=== PATIENT | male | born 1965 | race American Indian/Alaskan Native ===

== ENCOUNTER 2020-09-22 07:36 | Day surgery (SDC) | payer OTHER ==
[~2020-09-22 07:36] MED LIST: SODIUM CHLORIDE 0.9% 1000 ML 1,000 ML IV SCH
--- NOTE | 2020-09-22 09:13 | Anesthesia Consultation ---
Anesthesia Consult and Med Hx Date of service: 09/22/20 - Airway Anesthetic Teeth Evaluation: Good ROM Head & Neck: Adequate Mental/Hyoid Distance: Adequate Mallampati Class: Class III Intubation Access Assessment: Possibly Difficult - Pre-Operative Health Status ASA Pre-Surgery Classification: ASA2 Proposed Anesthetic Plan: MAC - Pulmonary Hx Smoking: No Hx Respiratory Symptoms: No - Cardiovascular System Hx Hypertension: Yes - Central Nervous System CVA: No - Endocrine Hx Renal Disease: No Hx Liver Disease: No Hx Non-Insulin Dependent Diabetes: Yes Hx Thyroid Disease: No - Other Systems Hx Obesity: Yes (BMI 37)
--- NOTE | 2020-09-22 09:13 | Anesthesia Day of Surgery ---
Anesthesia Day of Surgery - Day of Surgery Patient Examined: Yes Patient H&P Reviewed: Yes Patient is NPO: Yes
[2020-09-22] MEDS ORDERED: LIDOCAINE MPF (2%) 20 MG/1 ML VIAL 5 ML ONE (09:25)
[2020-09-22] MEDS ORDERED: propofoL 200 MG/20 ML VIAL IV ONE ×2 (09:25)
--- NOTE | 2020-09-22 09:57 | Procedure Note ---
Date of procedure: 09/22/20 Pre-op diagnosis: Colon Polyp Screening/ Hematochezia Post-op diagnosis: other (Hematochezia secondary to Minor Internal Hemorrhoids (not significant enough for banding)/ No Colon Polyps or diverticular Disease noted) Procedure: Colonoscopy Anesthesia: MAC Surgeon: KEIKO CLAY Estimated blood loss: none Pathology: none Condition: stable Disposition: same day (Resume home medication. To treat with Anusol HC Suppository; follow up in 1 to 2 weeks ([phone]).)
--- NOTE | 2020-09-22 10:06 | Operative Report ---
DATE OF SURGERY: 09/22/2020 INDICATIONS: This is a 55-year-old -[place] gentleman who had a colonoscopy done as part of colon polyp screening. He also complained of some hematochezia. DESCRIPTION OF PROCEDURE: Colonoscopy was done after getting informed consent with MAC anesthesia. Initial rectal exam was unremarkable. The instrument was passed through the rectum onto the cecum, which was identified with ileocecal valve and the appendiceal orifice. Visualization was fair to good. The scope was withdrawn to the splenic flexure and reintroduced. The proximal colon, transverse colon, descending colon, and sigmoid showed normal mucosa. There was no evidence of any polyps, colitis or diverticular disease. Rectum showed some minor internal hemorrhoid, which may have been the cause of the patient's hematochezia, but not significant enough for banding at this moment. ASSESSMENT: Colon polyp screening, no colon polyps noted. No diverticula. Hematochezia secondary to minor internal hemorrhoid. PLAN: To treat the patient with Anusol-HC suppository. Resume previous medication. Follow up in the office in 1-2 weeks' time. Procedure was done in the GI lab with assistance of the GI lab team, which included the GI nurse, the earth science technician, and the assistance of Anesthesia. TID: [id number] RECEIPT: [id number] WOOD/VAUGHN
[2020-09-22 10:22] VITALS: BP 105/69
--- NOTE | 2020-09-22 11:32 | Post Anesthesia Evaluation ---
- Post Anesthesia Evaluation Patient Participated: Yes Airway Patent: Yes Stable Respiratory Function: Yes Nausea/Vomiting: No Temp > 96.8F: Yes Pain Manageable: Yes Adequeate Hydration: Yes Anesthesia Complications: No
== END 2020-09-22 10:45 | disposition home or self-care (01) ==
LOC: GIO 07:36
DX: K92.1 Melena (principal); K64.8 Other hemorrhoids; I10 Essential (primary) hypertension; E11.9 Type 2 diabetes mellitus without complications; E66.9 Obesity, unspecified; Z79.899 Other long term (current) drug therapy; Z68.37 Body mass index [BMI] 37.0-37.9, adult
CPT/HCPCS: 45378; 82962; J2704; J7030

== ENCOUNTER 2020-10-06 10:11 | Day surgery (SDC) | payer OTHER ==
--- NOTE | 2020-10-06 11:03 | Anesthesia Consultation ---
Anesthesia Consult and Med Hx Date of service: 10/06/20 - Airway Anesthetic Teeth Evaluation: Chipped (broken off tooth bottom front) ROM Head & Neck: Adequate Mental/Hyoid Distance: Adequate Mallampati Class: Class III Intubation Access Assessment: Possibly Difficult - Pre-Operative Health Status ASA Pre-Surgery Classification: ASA3 - Pulmonary Hx Smoking: No Hx Respiratory Symptoms: No - Cardiovascular System Hx Hypertension: Yes - Central Nervous System CVA: No - Gastrointestinal Hx Gastroesophageal Reflux Disease: Yes (nausea/vomiting) - Endocrine Hx Renal Disease: No Hx Liver Disease: No Hx Non-Insulin Dependent Diabetes: Yes Hx Thyroid Disease: No - Other Systems Hx Obesity: Yes (BMI 37)
--- NOTE | 2020-10-06 11:03 | Anesthesia Day of Surgery ---
Anesthesia Day of Surgery - Day of Surgery Patient Examined: Yes Patient H&P Reviewed: Yes Patient is NPO: Yes
[2020-10-06] MEDS ORDERED: ONDANSETRON 4 MG/2 ML INJ ONE (12:54)
[2020-10-06] MEDS ORDERED: LIDOCAINE MPF (2%) 20 MG/1 ML VIAL 5 ML ONE (12:54)
[2020-10-06] MEDS ORDERED: propofoL 200 MG/20 ML VIAL IV ONE (12:57)
--- NOTE | 2020-10-06 13:17 | Procedure Note ---
Date of procedure: 10/06/20 Pre-op diagnosis: GERD Post-op diagnosis: other (Mild to Moderate Erosive Esophagitis/ Gastritis/ Small, gastroic Ulcer) Procedure: EGD with Biopsy Anesthesia: MAC Surgeon: KEIKO CLAY Estimated blood loss: minimal Pathology: list Specimen disposition: to lab Condition: stable Disposition: same day (Avoid aspirin and NSAID and anticoagulants for 4 days. Treat with PPI and resume home medication and f/u in 2 weeks ([phone]).)
[2020-10-06 14:21] VITALS: BP 119/81
--- NOTE | 2020-10-06 14:56 | Operative Report ---
DATE OF SURGERY: 10/06/2020 PROCEDURE PERFORMED: EGD with biopsy. INDICATIONS: This is a 55-year-old slightly obese -[place] gentleman who has a history of colon polyp, had a colonoscopy done recently, did not have any colon polyps during the last colonoscopy. Has lately been complaining of GERD symptoms. EGD was done to assess for the issue. DESCRIPTION OF PROCEDURE: Procedure was done after getting informed consent. The instrument was passed through the hypopharynx into the esophagus, which did show musf-po-itighara distal erosive esophagitis. Biopsy was done from the distal esophagus. The stomach showed gastritis. Biopsy was done from the gastric antrum, body and angular incisura to rule out for H. pylori. There was a small gastric ulcer also noted near the incisura that was also biopsied. Pylorus is patent. Duodenum in the first and second portion appeared normal. There is minimal bleeding associated with the biopsies. No complications associated with the procedure. ASSESSMENT: Gastroesophageal reflux disease symptoms, esophagitis, gastritis, small gastric ulcer. Plan is to have the patient avoid aspirin and aspirin-related products for the next few days. Treat the patient with PPI and have the patient follow up in the office in 1-2 weeks' time. Otherwise, resume home medication. Procedure was done in the GI lab with assistance of the GI lab team, which included the GI nurse, the sonography technician and with the assistance of Anesthesia. TID: [id number] RECEIPT: [id number] PALMER
== END 2020-10-06 14:53 | disposition home or self-care (01) ==
LOC: GIO 10:11
DX: E66.9 Obesity, unspecified (principal); K21.00 Gastro-esophageal reflux disease with esophagitis, without bleeding; K31.89 Other diseases of stomach and duodenum; K29.50 Unspecified chronic gastritis without bleeding; B96.81 Helicobacter pylori [H. pylori] as the cause of diseases classified elsewhere; I10 Essential (primary) hypertension; E11.9 Type 2 diabetes mellitus without complications; Z79.899 Other long term (current) drug therapy; Z98.890 Other specified postprocedural states
CPT/HCPCS: 43239; 82962; 88305; 88342; J2405; J2704; J7030